=== PATIENT | female | born 1945 | race Caucasian/White ===

== ENCOUNTER 2022-06-08 12:34 | Emergency (ER) | payer MEDICARE, OTHER ==
[~2022-06-08] VITALS: Ht 162.6 cm; Wt 52.2 kg
--- NOTE | 2022-06-08 10:02 | NUR ---
morphine 2mg given as verbally ordered by Md later on Md order entered as 4mg. new physician,.
[2022-06-08] MEDS ORDERED: MORPHINE SULFATE 4 MG/1 ML DISP.SYRIN IV ONE (13:15)
[2022-06-08] MEDS ORDERED: IV NORMAL SALINE 1000 ML BAG IV ONE (13:15)
[2022-06-08] MEDS ORDERED: MORPHINE SULFATE 2 MG/1 ML DISP.SYRIN ONE (13:16)
[2022-06-08 13:23] LABS: HEMATOCRIT 35.2 % (31.2-41.9); MEAN CORPUSCULAR VOLUME 89.3 fL (75.5-95.3); PLATELET COUNT (AUTO) 432 K/uL (179-408)
[2022-06-08 13:36] LABS: BILIRUBIN,DIRECT 0.1 mg/dL (0.0-0.2); BILIRUBIN,TOTAL 0.4 mg/dL (0.2-1.0); CREATININE 1.3 mg/dL (0.6-1.3); POTASSIUM 3.3 mmol/L (3.5-5.1)
[2022-06-08] MEDS ORDERED: IOHEXOL 300MG/ML 50 ML VIAL ONE (14:09)
[2022-06-08] MEDS ORDERED: IV NORMAL SALINE 250 ML IV ONE (14:10)
[2022-06-08] MEDS ORDERED: SWABABLE VALVE TRANSFER SET EA MC ONE (14:10)
[2022-06-08] MEDS ORDERED: POTASSIUM CHLORIDE 20 MEQ TAB.PRT.SR ONE (14:39)
[2022-06-08] MEDS ORDERED: POTASSIUM CHLORIDE 20 MEQ TAB.PRT.SR PO ONE (14:45)
[2022-06-08] MEDS ORDERED: IV LACTATED RINGERS SOLUTION 1,000 ML BAG IV ONE (16:15)
[2022-06-08] MEDS ORDERED: METRONIDAZOLE 500 MG/NS 100ML 100 ML IV ONE ×2 (16:15→16:30)
[2022-06-08] MEDS ORDERED: CEFTRIAXONE /D5W 50ML IVPB **ER PYXIS IV ONE (16:29)
[2022-06-08] MEDS ORDERED: CEFTRIAXONE 1 G in IV DEXTROSE 5% 50 ML IV ONE (16:30)
--- NOTE | 2022-06-08 18:22 | NUR ---
Dr. Olson is on the phone with ELVIA Newsome.
--- NOTE | 2022-06-08 19:25 | NUR ---
ASSUME CARE AND REPORT OBTAINED FROM OUTGOING RN.PATIENT, A,A AND [facility], [facility] [facility], REPORTS ABDOMIN PAIN, PER REPORT POSSIBLLY TRANSFERRING OUT TO [facility]. ABN CT REPORT REGARDING ABSCESS IN ABDOMEN. NO NEW ORDERS NOTED AND CT RESULTS PENDING INSURANCE APPROVAL.
--- NOTE | 2022-06-08 19:31 | NUR ---
Spoke to rn field case managerEstefani at [phone]. COVID swab collected and sent to LAB.
[2022-06-08] MEDS ORDERED: HYDROMORPHONE 2 MG/1 ML DISP.SYRIN ONE (20:27)
[2022-06-08] MEDS ORDERED: HYDROMORPHONE 1 MG/1 ML DISP.SYRIN IV ONE (20:30)
[2022-06-08] MEDS ORDERED: HYDROMORPHONE 1 MG/1 ML DISP.SYRIN ONE (20:35)
--- NOTE | 2022-06-08 20:35 | NUR ---
Faxed pt's clinical to [facility].
--- NOTE | 2022-06-08 22:15 | NUR ---
REPORT GIVEN TO NURSING SUP DIRECTED TO FLOAT TO OTHER UNIT.VSS,NO DISTRESS.
[2022-06-08] MEDS ORDERED: ACETAMINOPHEN 325 MG TABLET PO PRN (22:45)
[2022-06-08] MEDS ORDERED: REMEDY ESSENTIAL ZINC PASTE 113 GM TP PRN (22:45)
[2022-06-08] MEDS ORDERED: ONDANSETRON 4 MG/2 ML VIAL IV PRN (22:45)
[2022-06-08] MEDS ORDERED: CEFTRIAXONE 1 G in IV DEXTROSE 5% 50 ML IV SCH (22:45)
[2022-06-08] MEDS ORDERED: MAGNESIUM HYDROXIDE 30 ML LIQUID UDC PO PRN (22:45)
[2022-06-08] MEDS ORDERED: IV D5/ 0.9% NACL 1,000 ML IV PRN (22:45)
--- NOTE | 2022-06-08 23:00 | NUR ---
Received handoff from FRANTZ Turner for continuity of care. Patient is pending transfer to [facility] for inpatient admission. Awaiting call back from insurance for transfer information. Will continue to monitor and observe.
--- NOTE | 2022-06-08 23:15 | NUR ---
[facility] with transfer information. Patient will be transferred to [facility] to the [facility] 3rd Floor room 310-B. The nurse will be FRANTZ Matute and contact phone number is [phone]
--- NOTE | 2022-06-08 23:38 | NUR ---
Estefani from [facility] called back for ambulance info. Patient will be picked up by [facility] ambulance, ETA is [phone].
--- NOTE | 2022-06-09 01:00 | NUR ---
RE-ASSUME CARE, NEW ORDERS NOTED FOR ABT AND IVF.PATIENT NOTIFIED AND REFUSED TO CHANGE INTO [facility].
[2022-06-09] MEDS ORDERED: CEFTRIAXONE /D5W 50ML IVPB **ER PYXIS IV ONE (01:41)
[2022-06-09] MEDS ORDERED: METRONIDAZOLE 500 MG/NS 100ML 0 ML IV ONE (03:36)
--- NOTE | 2022-06-09 04:54 | NUR ---
PATIENT PICKED UP [facility] UNIT #32 REPORT GIVEN TO [facility] CALLED AND REPORT GIVEN TO NUVIA LANDRY RECEIVING PT AT [facility].THE PATIENT LEFT ED WITHOUT DISTRESS OR INJURIES
[2022-06-09] MEDS ORDERED: METRONIDAZOLE 500 MG/NS 100ML 500 MG in PREMIXED 1 EACH IV SCH (06:00)
== END 2022-06-09 05:00 | disposition short-term general hospital (02) ==
LOC: ER 12:42
DX: K65.1 Peritoneal abscess (principal); Z90.710 Acquired absence of both cervix and uterus; G24.9 Dystonia, unspecified; Z88.0 Allergy status to penicillin; Z91.018 Allergy to other foods; E87.1 Hypo-osmolality and hyponatremia; E87.6 Hypokalemia; R11.2 Nausea with vomiting, unspecified; Z20.822 Contact with and (suspected) exposure to COVID-19; R94.31 Abnormal electrocardiogram [ECG] [EKG]
CPT/HCPCS: 99285; 74177; 96365; 96361; 96375; 96367; 87426; 80076; 80048; 83690; 85025; 87040 ×2; 84484; 36415; 93005 ×2; 83605; 96366; Q9967; J0696 ×2; J3490; J1170; J2270; J7120; J7040; J7042